=== PATIENT | female | born 1955 | race Caucasian/White ===

== ENCOUNTER 2018-08-12 11:00 | Outpatient (REF) | payer OTHER, SELFPAY ==
[2018-08-12 12:11] LABS: ALT 17 U/L (12-78); AST 15 U/L (15-37); Albumin 3.5 g/dL (3.4-5.0); Alkaline Phosphatase 102 U/L (46-116); Anion Gap 9.7 mmol/L (3-11); BUN 10 mg/dL (7-18); Bilirubin, Total 0.3 mg/dL (0.2-1.0); CO2 29.3 mmol/L (21.0-32.0); CREATININE 1.03 mg/dL (0.55-1.02); Chloride 102 mmol/L (98-107); Cholesterol 184 mg/dL (50-200); Estimated GFR 54.12 (mL/min/1.73m2); Glucose 136 mg/dL (70-100); HDL Cholesterol 48 mg/dL (40-60); LDL CHOLESTEROL 110 mg/dL (<100); Potassium 3.4 mmol/L (3.5-5.1); Sodium 141 mmol/L (136-145); Total Protein 6.8 g/dL (6.4-8.2); Triglyceride 130 mg/dL (30-150)
[2018-08-12 12:15] LABS: Calcium 8.9 mg/dL (8.5-10.1)
== END 2018-08-12 11:20 ==
LOC: NCHCN 11:00
PROVIDERS: PCP Internal Medicine; Visit Provider Family Medicine
DX: I10 Essential (primary) hypertension (principal)
CPT/HCPCS: 80053; 80061; 83721

== ENCOUNTER 2018-08-14 10:55 | Outpatient (REF) | payer OTHER, SELFPAY ==
--- NOTE | 2018-08-14 10:00 | PAPFT_PTH ---
PATIENT: Lexis Gamez LOC: [facility] U#:[id number] AGE/SX: 62/F ROOM: RE08/14/[address]: Kristi Ansari : 1955 BED: DIS: 08/14/2018 SPEC #: [id number] RECD: 08/14/18 12:57 STATUS: LEONARDO REMynor #: [id number] ALFONSO: 08/14/18 10:[address]: Kristi Ansari DEPT: [facility] Cytology RECD BY: Maria M Feliz ENTERED: 08/14/18 12:58 SP TYPE: PAPFT OTHR DR: Lorne Broderick Tissues: 1 - CX/ENDOCX FOR PAP SMEARS Procedures: PAP THIN PREP/[facility] Screening HPV DNA PROBE Comments: [id number]
== END 2018-08-14 11:15 ==
LOC: LBN 10:55
PROVIDERS: PCP Internal Medicine; Visit Provider Obstetrics & Gynecology Gynecology
DX: Z12.4 Encounter for screening for malignant neoplasm of cervix (principal); Z11.51 Encounter for screening for human papillomavirus (HPV)
CPT/HCPCS: 88142; 87624

== ENCOUNTER 2020-09-08 09:07 | Outpatient (REF) | payer OTHER, SELFPAY ==
[2020-09-08 21:32] LABS: Abs Immature Grans 0.03 10^3/uL (0.0-0.06); Absolute Basophil Count 0.05 10^3/uL (0.0-0.2); Absolute Eosinophil Count 0.33 10^3/uL (0.0-0.7); Absolute Lymphocyte Count 2.58 10^3/uL (1.2-3.4); Absolute Monocyte Count 0.71 10^3/uL (0.1-0.8); Absolute Neutrophil Count 5.38 10^3/uL (1.2-6.7); Basophils % 0.6; Eosinophils % 3.6; HGB 13.4 g/dL (11.2-15.7); Immature Grans % 0.3; Lymphocytes % 28.4; MCH 30.4 pg (27.0-33.0); MCHC 31.2 % (32.0-36.0); MCV 97.5 fL (80-95); Monocytes % 7.8; Neutrophils % 59.3; Nucleated RBC 0 %; Platelet Count 348 10^3/uL (130-400); RBC 4.41 10^6/uL (3.93-5.22); RDW 13.5 % (11.7-14.6); RDW-SD 49.4 fL; WBC 9.08 10^3/uL (4.4-10.8)
[2020-09-08 22:04] LABS: Hemoglobin A1C 5.9 % (<5.7)
[2020-09-08 22:37] LABS: ALT 23 U/L (14-59); AST 17 U/L (15-37); Albumin 3.9 g/dL (3.4-5.0); Alkaline Phosphatase 91 U/L (46-116); Anion Gap 9.3 mmol/L (3-11); BUN 7 mg/dL (7-18); Bilirubin, Total 0.3 mg/dL (0.2-1.0); CO2 27.7 mmol/L (21.0-32.0); Calcium 9.2 mg/dL (8.5-10.1); Calculated LDL 117 mg/dL (<100); Chloride 106 mmol/L (98-107); Cholesterol 198 mg/dL (<200); Estimated GFR 55.64 (mL/min/1.73m2); Glucose 81 mg/dL (74-106); HDL Cholesterol 48 mg/dL (40-60); Potassium 4.6 mmol/L (3.5-5.1); Sodium 143 mmol/L (136-145); TSH (W/Ref FT4) 0.33 uIU/mL (0.36-3.74); Total Protein 7.1 g/dL (6.4-8.2); Triglyceride 165 mg/dL (<150)
[2020-09-08 23:04] LABS: FREE T4 0.94 ng/dL (0.76-1.46)
== END 2020-09-08 09:08 | disposition home or self-care (01) ==
LOC: NCHCN 09:07
PROVIDERS: PCP Internal Medicine; Visit Provider Family Medicine
DX: R53.83 Other fatigue (principal); I10 Essential (primary) hypertension; L65.9 Nonscarring hair loss, unspecified; R73.9 Hyperglycemia, unspecified
CPT/HCPCS: 80053; 80061; 83036; 84439; 84443; 85025